=== PATIENT | female | born 1945 | race Caucasian/White ===

== ENCOUNTER → 2019-06-30 | Outpatient (CLI) | payer MEDICARE | END | disposition home or self-care (01) | LOC: SHCH 08:35 | PROVIDERS: ATTEND Internal Medicine Cardiovascular Disease | DX: I08.2 Rheumatic disorders of both aortic and tricuspid valves (principal) | CPT/HCPCS: 93306 ==

== ENCOUNTER 2019-08-29 06:08 | Day surgery (SDC) | payer MEDICARE ==
[2019-08-24 13:31] LABS: BASOPHILS % (AUTO) 0.4 % (0.0-5.0); EOSINOPHILS % (AUTO) 1.6 % (0.0-8.0); LYMPHOCYTES % (AUTO) 19.4 % (21.0-51.0); MEAN CORPUSCULAR HEMOGLOBIN 29.4 pg (27.0-33.0); MEAN CORPUSCULAR HGB CONC 32.3 g/dL (32.0-36.0); MEAN CORPUSCULAR VOLUME 91.1 fL (79-99); MONOCYTES % (AUTO) 8.7 % (3.0-13.0); NEUTROPHILS % (AUTO) 69.8 % (40.0-77.0); PLATELET COUNT (AUTO) 223 K/uL (130-400); RED BLOOD CELL COUNT(AUTO) 3.84 MIL/uL (4.00-5.50); RED CELL DISTRIBUTION WIDTH 13.1 % (11.0-15.5); WHITE BLOOD COUNT (AUTO) 6.9 K/uL (4.8-10.8)
[2019-08-24 13:38] LABS: POTASSIUM 4.1 mmol/L (3.5-5.1)
[2019-08-24 13:41] LABS: INR 1.17 (0.85-1.15); PARTIAL THROMBOPLASTIN TIME 34.9 SEC (26.3-35.5); PROTHROMBIN TIME 12.2 SEC (9.6-11.6)
[2019-08-24 13:46] VITALS: BP 125/85
--- NOTE | 2019-08-28 14:46 | NUR ---
RE: ABNORMAL LABS CALLED TYREE JERNIGAN AND REPORTED ABNORMAL LABS (PT 12.2, INR 1.17 AND H/H 11.3/35.0). NO NEW ORDERS RECEIVED, OK TO PROCEED WITH CARDIOVERSION.
[~2019-08-29] VITALS: Ht 162.6 cm; Wt 75.3 kg
[2019-08-29] VITALS (8 sets, daily range): BP systolic 119–151; BP diastolic 50–111
[~2019-08-29 06:08] MED LIST: ASPI-555 PO; BUSP10TA3 PO; CARV3.12 PO; DICY20TA11 PO; DONE10TA43 PO; DRON400T2 PO; FAMO-135 PO; MULT-959 PO; OMEG-148 PO; OMEP20TA2 PO; PRAV40TA3 PO; PREM125 PO; RIVA20TA PO; [UNRECOGNIZED DRUG - OTHER] PO
[2019-08-29] MEDS ORDERED: PSYL3.4P5 PO (07:36)
[2019-08-29] MEDS ORDERED: LORA10TA60 PO (07:36)
[2019-08-29] MEDS ORDERED: ACET-2247 PO (07:36)
[2019-08-29] MEDS ORDERED: POLY17PO4 PO (07:36)
[2019-08-29] MEDS ORDERED: PROPOFOL 10 MG/ML 20ML VIAL IV ONE (09:29)
[2019-08-29] MEDS ORDERED: SUCCINYLCHOLINE CHLORIDE 20 MG/ML 10 ML VIAL ONE (09:29)
== END 2019-08-29 10:40 | disposition home or self-care (01) ==
LOC: DAH 06:08
PROVIDERS: ATTEND Internal Medicine Cardiovascular Disease
DX: I48.19 Other persistent atrial fibrillation (principal); H91.90 Unspecified hearing loss, unspecified ear; G30.9 Alzheimer's disease, unspecified; E78.5 Hyperlipidemia, unspecified; K21.9 Gastro-esophageal reflux disease without esophagitis; Z90.710 Acquired absence of both cervix and uterus; Z79.01 Long term (current) use of anticoagulants; Z79.82 Long term (current) use of aspirin; Z79.899 Other long term (current) drug therapy
CPT/HCPCS: 36415; 80048; 85025; 85610; 85730; 92960; 93005 ×2; A4215; A4216; A4221; A4222; A4223 ×3; A4606; A4663; J0330; J2704; 99156

== ENCOUNTER 2021-06-16 06:53 | Day surgery (SDC) | payer OTHER ==
[2021-06-10 13:10] LABS: BASOPHILS % (AUTO) 0.6 % (0.0-5.0); EOSINOPHILS % (AUTO) 0.8 % (0.0-8.0); HEMATOCRIT 36.3 % (36-48); LYMPHOCYTES % (AUTO) 13.1 % (21.0-51.0); MEAN CORPUSCULAR HGB CONC 31.4 g/dL (32.0-36.0); MEAN CORPUSCULAR VOLUME 92.4 fL (79-99); MONOCYTES % (AUTO) 8.3 % (3.0-13.0); NEUTROPHILS % (AUTO) 76.7 % (40.0-77.0); PLATELET COUNT (AUTO) 222 K/uL (130-400); RED BLOOD CELL COUNT(AUTO) 3.93 MIL/uL (4.00-5.50); RED CELL DISTRIBUTION WIDTH 13.5 % (11.0-15.5); WHITE BLOOD COUNT (AUTO) 6.3 K/uL (4.8-10.8)
[2021-06-10 13:21] LABS: CREATININE 1.2 mg/dL (0.5-1.5); POTASSIUM 4.4 mmol/L (3.5-5.1)
[2021-06-10 13:24] LABS: INR 1.28 (0.85-1.15); PROTHROMBIN TIME 13.6 SEC (9.6-11.6)
[2021-06-10 13:25] LABS: PARTIAL THROMBOPLASTIN TIME 37.7 SEC (26.3-35.5)
[2021-06-11 08:45] VITALS: BP 120/65
[2021-06-16] VITALS (16 sets, daily range): BP systolic 110–143; BP diastolic 42–68
[~2021-06-16] VITALS: Ht 160 cm; Wt 77.7 kg
[~2021-06-16 06:53] MED LIST changes: +0.9% NACL 500ML IV.SOLN 500 ML IV SCH; -ASPI-555 PO; +CHOL200074 PO; +CITA-107 PO; -DICY20TA11 PO; +DICY20TA3 PO; -DRON400T2 PO; +DRON400T7 PO; -FAMO-135 PO; +FAMO-290 PO; +LORA10TA60 PO; +MEMA5TAB42 PO; +POLY17PO4 PO; +PSYL3.4P5 PO; -[UNRECOGNIZED DRUG - OTHER] PO
[2021-06-16] MEDS ORDERED: 0.9%NACL 1000ML 1,000 ML IV ONE (09:13)
[2021-06-16] MEDS ORDERED: PROPOFOL 10 MG/ML 20ML VIAL IV ONE (09:21)
== END 2021-06-16 10:45 | disposition home or self-care (01) ==
LOC: CLH 06:53 → DAH 06:53 → CLH 10:45
PROVIDERS: ATTEND Internal Medicine Cardiovascular Disease
DX: I48.0 Paroxysmal atrial fibrillation (principal); Z20.822 Contact with and (suspected) exposure to COVID-19; I44.0 Atrioventricular block, first degree; I49.1 Atrial premature depolarization; I10 Essential (primary) hypertension; K21.9 Gastro-esophageal reflux disease without esophagitis; E66.01 Morbid (severe) obesity due to excess calories; E78.5 Hyperlipidemia, unspecified; G30.9 Alzheimer's disease, unspecified; F02.80 Dementia in other diseases classified elsewhere, unspecified severity, without behavioral disturbance, psychotic disturbance, mood disturbance, and anxiety; Z88.6 Allergy status to analgesic agent; Z80.42 Family history of malignant neoplasm of prostate; Z79.899 Other long term (current) drug therapy; Z79.01 Long term (current) use of anticoagulants; Z68.30 Body mass index [BMI] 30.0-30.9, adult
CPT/HCPCS: 36415; 80048; 85025; 85610; 85730; 87635; 92960; 93005 ×2; A4215; A4216; A4221; A4222; A4223 ×3; A4606; A4663; A7002; C9803; J2704; J7030; J7040; 99156

== ENCOUNTER 2021-07-18 20:10 | Observation (INO) | payer OTHER ==
[~2021-07-18] VITALS: Ht 160 cm; Wt 73.5 kg
[~2021-07-18 20:10] MED LIST changes: -0.9% NACL 500ML IV.SOLN 500 ML IV SCH
[2021-07-18 21:17] LABS: BASOPHILS % (AUTO) 0.1 % (0.0-5.0); EOSINOPHILS % (AUTO) 1.9 % (0.0-8.0); HEMATOCRIT 35.9 % (36-48); LYMPHOCYTES % (AUTO) 7.2 % (21.0-51.0); MEAN CORPUSCULAR HEMOGLOBIN 29.1 pg (27.0-33.0); MEAN CORPUSCULAR HGB CONC 32.6 g/dL (32.0-36.0); MEAN CORPUSCULAR VOLUME 89.3 fL (79-99); MONOCYTES % (AUTO) 5.4 % (3.0-13.0); PLATELET COUNT (AUTO) 231 K/uL (130-400); RED BLOOD CELL COUNT(AUTO) 4.02 MIL/uL (4.00-5.50); RED CELL DISTRIBUTION WIDTH 13.2 % (11.0-15.5); WHITE BLOOD COUNT (AUTO) 6.7 K/uL (4.8-10.8)
[2021-07-18 21:43] LABS: CARBON DIOXIDE 27 mmol/L (21-32); CHLORIDE 97 mmol/L (101-111); GLOMERULAR FILTR. RATE CALC 57 mL/min (>60); GLUCOSE,RANDOM 120 mg/dL (70-105); POTASSIUM 3.5 mmol/L (3.5-5.1); SODIUM SERUM 133 mmol/L (136-145); UREA NITROGEN, BLOOD 10 mg/dL (7-18)
[2021-07-18 21:52] LABS: ALANINE AMINOTRANSFERASE 30 U/L (12-78); ALBUMIN 3.1 g/dL (3.5-5.0); ASPARTATE AMINOTRANSFERASE 32 U/L (10-37); BILIRUBIN,TOTAL 0.5 mg/dL (0.2-1.0); TOTAL PROTEIN, SERUM 7.1 g/dL (6.0-8.3)
[2021-07-18 21:56] LABS: INR 1.05 (0.85-1.15); LIPASE < 50 U/L (114-286); PROTHROMBIN TIME 11.4 SEC (9.6-11.6)
[2021-07-18 21:57] LABS: PARTIAL THROMBOPLASTIN TIME 34.9 SEC (26.3-35.5)
[2021-07-18 22:36] LABS: APPEARANCE,URINE CLEAR (CLEAR); BILIRUBIN,URINE SMALL (NEGATIVE); COLOR,URINE YELLOW (YELLOW); GLUCOSE, URINE (UA) NEGATIVE (NEGATIVE); KETONES,URINE 15 mg/dL (NEGATIVE); LEUKOCYTE ESTERASE ,URINE SMALL (NEGATIVE); NITRATE,URINE NEGATIVE (NEGATIVE); OCCULT BLOOD,URINE NEGATIVE (NEGATIVE); PROTEIN,URINE 30 mg/dL (NEGATIVE); UROBILINOGEN,URINE 0.2 mg/dL (0.2-1.0)
[2021-07-18 22:44] LABS: RBC,URINE 0-1 /HPF (0-1)
[2021-07-18 22:45] LABS: BACTERIA,URINE Few /HPF (None Seen); SQUAMOUS EPITHELIAL CELL,UR Rare /HPF (0-2)
[2021-07-18 22:52] LABS: WBC,URINE None Seen /HPF (0-1)
[2021-07-19] MEDS ORDERED: GUAIFENESIN-DM 200/20 MG 10 ML PO PRN (01:30)
[2021-07-19] MEDS ORDERED: ACETAMINOPHEN 325 MG TAB PO PRN ×2 (01:30)
[2021-07-19] MEDS ORDERED: MAG/ALUM/SIMETH 30 ML UDCUP PO PRN (01:30)
[2021-07-19] MEDS ORDERED: ERGOCALCIFEROL (VITAMIN D2) 50,000 UNIT CAPSULE PO ONE (01:30)
[2021-07-19] MEDS ORDERED: LACTULOSE 20 GM/30 ML UDCUP PO PRN (01:30)
[2021-07-19 01:51] LABS: ABG HCO3 22.6 mmol/L (21.0-28.0); ABG OXYGEN SATURATION 96.3 % (95.0-99.0); ABG PCO2 31 mmHg (32-45)
[2021-07-19] MEDS: AZITHROMYCIN 500MG+NS 250ML 250 ML IV SCH (02:06)
[2021-07-19] MEDS: CEFTRIAXONE 1G VIAL IV SCH (02:06)
[2021-07-19] MEDS: ONDANSETRON 4MG INJ IV PRN (04:06)
[2021-07-19] MEDS: INSULIN HUMULIN R 100 UNIT/ML 3ML SQ SCH ×4 (07:30→20:47)
[2021-07-19] MEDS ORDERED: ENOXAPARIN SODIUM 40 MG/0.4 ML SYRINGE SQ SCH ×2 (09:00)
[2021-07-19] MEDS ORDERED: CARVEDILOL 6.25 MG TABLET PO SCH (09:00)
[2021-07-19] MEDS: ASPIRIN 81 MG EC TAB PO SCH (09:01)
[2021-07-19] MEDS: POLYETHYLENE GLYCOL 3350 17 GM POWD.PACK PO SCH (09:01)
[2021-07-19] MEDS: ZINC SULFATE 220 CAPSULE PO SCH (09:01)
[2021-07-19] MEDS: ASCORBIC ACID 500 MG TAB PO SCH (09:01)
[2021-07-19] MEDS: FAMOTIDINE 20MG TAB PO SCH ×2 (09:01→20:46)
[2021-07-19] MEDS ORDERED: LIDOCAINE HCL-MPF 1% 2ML VIAL IV PRN (13:00)
[2021-07-19] MEDS ORDERED: MAGNESIUM 2GM PREMIX 50ML 50 ML IV PRN (13:00)
[2021-07-19] MEDS ORDERED: POTASSIUM CHLORIDE 20MEQ/100ML 100 ML IV PRN (13:00)
[2021-07-19] MEDS ORDERED: KCL 20 MEQ ERTAB PO PRN (13:00)
[2021-07-19] MEDS ORDERED: POTASSIUM CHLORIDE 10% ELIXIR 20 MEQ/15 ML UDCUP PO PRN (13:00)
[2021-07-19 13:56] VITALS: BP 119/60
[2021-07-19 16:00] VITALS: BP 106/55
[2021-07-19] MEDS ORDERED: ENOXAPARIN SODIUM 80 MG/0.8 ML SQ SCH (16:00)
[2021-07-19 19:14] VITALS: BP 140/71
[2021-07-19] MEDS: MEMANTINE HCL 5 MG TABLET PO SCH (20:45)
[2021-07-19] MEDS: BUSPIRONE HCL 5 MG TABLET PO SCH (20:46)
[2021-07-19] MEDS: CARVEDILOL 3.125 MG TABLET PO SCH (20:46)
[2021-07-19] MEDS ORDERED: RIVAROXABAN 20 MG TABLET PO SCH (21:00)
[2021-07-19] MEDS ORDERED: POLYETHYLENE GLYCOL 3350 17 GM POWD.PACK PO SCH (21:00)
[2021-07-19] MEDS ORDERED: SIMVASTATIN 20 MG TABLET PO SCH (21:00)
[2021-07-19 23:23] VITALS: BP 117/68
[2021-07-20] MEDS: CEFTRIAXONE 1G VIAL IV SCH (02:06)
[2021-07-20] MEDS: AZITHROMYCIN 500MG+NS 250ML 250 ML IV SCH (02:06)
[2021-07-20 03:37] VITALS: BP 141/60
[2021-07-20 04:10] LABS: BASOPHILS % (AUTO) 0.2 % (0.0-5.0); EOSINOPHILS % (AUTO) 0.5 % (0.0-8.0); HEMATOCRIT 31.8 % (36-48); LYMPHOCYTES % (AUTO) 20.4 % (21.0-51.0); MEAN CORPUSCULAR HEMOGLOBIN 28.4 pg (27.0-33.0); MEAN CORPUSCULAR HGB CONC 32.4 g/dL (32.0-36.0); MEAN CORPUSCULAR VOLUME 87.6 fL (79-99); NEUTROPHILS % (AUTO) 69.4 % (40.0-77.0); PLATELET COUNT (AUTO) 200 K/uL (130-400); RED BLOOD CELL COUNT(AUTO) 3.63 MIL/uL (4.00-5.50); RED CELL DISTRIBUTION WIDTH 13.2 % (11.0-15.5); WHITE BLOOD COUNT (AUTO) 4.3 K/uL (4.8-10.8)
[2021-07-20 04:28] LABS: ALBUMIN 2.6 g/dL (3.5-5.0); BILIRUBIN,TOTAL 0.4 mg/dL (0.2-1.0); CREATININE 0.9 mg/dL (0.5-1.5); POTASSIUM 3.3 mmol/L (3.5-5.1); TOTAL PROTEIN, SERUM 6.5 g/dL (6.0-8.3)
[2021-07-20] MEDS: INSULIN HUMULIN R 100 UNIT/ML 3ML SQ SCH ×2 (07:30→11:30)
[2021-07-20 08:00] VITALS: BP 124/64
[2021-07-20] MEDS: ONDANSETRON 4MG INJ IV PRN (08:04)
[2021-07-20] MEDS ORDERED: ESTROGENS,CONJUGATED 0.625 MG TAB PO SCH (09:00)
[2021-07-20] MEDS ORDERED: MULTIVITAMIN TABLET PO SCH (09:00)
[2021-07-20] MEDS ORDERED: LORATADINE 10 MG TABLET PO SCH (09:00)
[2021-07-20] MEDS ORDERED: ***HM*** (Cholecalciferol (Vitamin D3) (Vitamin D3) 50 MCG) PO SCH (09:00)
[2021-07-20] MEDS: POLYETHYLENE GLYCOL 3350 17 GM POWD.PACK PO SCH (09:00)
[2021-07-20] MEDS ORDERED: DONEPEZIL HCL 5 MG TAB PO SCH (09:00)
[2021-07-20] MEDS ORDERED: FISH OIL 1000 MG/CAP PO SCH (09:00)
[2021-07-20] MEDS ORDERED: CITALOPRAM 20 MG TABLET PO SCH (09:00)
[2021-07-20] MEDS ORDERED: PANTOPRAZOLE 40 MG TAB DR PO SCH (09:30)
[2021-07-20] MEDS: BUSPIRONE HCL 5 MG TABLET PO SCH (10:31)
[2021-07-20] MEDS: ZINC SULFATE 220 CAPSULE PO SCH (10:31)
[2021-07-20] MEDS: ASCORBIC ACID 500 MG TAB PO SCH (10:31)
[2021-07-20] MEDS: ASPIRIN 81 MG EC TAB PO SCH (10:32)
[2021-07-20] MEDS: MEMANTINE HCL 5 MG TABLET PO SCH (10:32)
[2021-07-20] MEDS: CARVEDILOL 3.125 MG TABLET PO SCH (10:32)
[2021-07-20 14:39] VITALS: BP 93/50
[2021-07-20] MEDS ORDERED: RIVAROXABAN 20 MG TABLET PO SCH (16:00)
[2021-07-20] MEDS ORDERED: CEFD300C3 PO (16:41)
== END 2021-07-20 16:02 | disposition home or self-care (01) ==
LOC: EDH 20:10 → INTOOBSV 07-19 01:20 → EDHIP 07-19 01:20 → 2AH 07-19 13:23
PROVIDERS: ADMIT Hospitalist; ATTEND Hospitalist
DX: U07.1 COVID-19 (principal); J12.82 Pneumonia due to coronavirus disease 2019; K57.90 Diverticulosis of intestine, part unspecified, without perforation or abscess without bleeding; K59.00 Constipation, unspecified; G30.9 Alzheimer's disease, unspecified; F02.80 Dementia in other diseases classified elsewhere, unspecified severity, without behavioral disturbance, psychotic disturbance, mood disturbance, and anxiety; I48.20 Chronic atrial fibrillation, unspecified; E87.1 Hypo-osmolality and hyponatremia; E11.9 Type 2 diabetes mellitus without complications; I10 Essential (primary) hypertension; E78.5 Hyperlipidemia, unspecified; K21.9 Gastro-esophageal reflux disease without esophagitis; H91.90 Unspecified hearing loss, unspecified ear; E78.00 Pure hypercholesterolemia, unspecified; Z79.899 Other long term (current) drug therapy; Z90.710 Acquired absence of both cervix and uterus; Z87.891 Personal history of nicotine dependence; Z97.4 Presence of external hearing-aid
CPT/HCPCS: 36415 ×3; 36600; 71045; 74176; 80053 ×2; 81001; 82270; 82728; 82803; 82948 ×5; 83615; 83690; 83735 ×2; 83880; 84145; 84484; 85025 ×2; 85378 ×2; 85384; 85610; 85730; 86140; 87635; 87804 ×2; 93005; 96365; 96366; 96372; 96375; 96376; 99285; C9803; G0378 ×6; J0456 ×2; J0696 ×2; J1650 ×2; J2405 ×2

== ENCOUNTER → 2021-08-06 | Outpatient (CLI) | payer OTHER ==
[~2021-08-06] MED LIST changes: +CEFD300C3 PO; -DRON400T7 PO
== END | disposition home or self-care (01) ==
LOC: SHCH 09:43
PROVIDERS: ATTEND Internal Medicine Cardiovascular Disease
DX: I08.0 Rheumatic disorders of both mitral and aortic valves (principal); E78.5 Hyperlipidemia, unspecified
CPT/HCPCS: 93306

== ENCOUNTER → 2021-09-30 | Outpatient (CLI) | payer OTHER ==
[~2021-09-30] MED LIST changes: +ALBUTEROL 0.083% 2.5 MG/3 ML INH IH ONE; +AMIO200T68 PO; -CARV3.12 PO; +CARV6.25 PO; -CEFD300C3 PO; +FLUO20CA30 PO; -LORA10TA60 PO; +LORA10TA7 PO; +MEMA10TA55 PO; -MEMA5TAB42 PO; +METH-425 PO; -OMEP20TA2 PO
== END | disposition home or self-care (01) ==
LOC: RESP 13:58
PROVIDERS: ATTEND Internal Medicine Cardiovascular Disease
DX: R06.01 Orthopnea (principal); R06.02 Shortness of breath
CPT/HCPCS: 94060; 94727; 94729

== ENCOUNTER 2021-10-09 17:10 | Observation (INO) | payer OTHER ==
[~2021-10-09] VITALS: Ht 167.6 cm; Wt 74.2 kg
[~2021-10-09 17:10] MED LIST changes: -ALBUTEROL 0.083% 2.5 MG/3 ML INH IH ONE
[2021-10-09 17:36] LABS: BASOPHILS % (AUTO) 0.5 % (0.0-5.0); EOSINOPHILS % (AUTO) 0.8 % (0.0-8.0); HEMATOCRIT 33.6 % (36-48); MEAN CORPUSCULAR HEMOGLOBIN 29.9 pg (27.0-33.0); MEAN CORPUSCULAR VOLUME 90.6 fL (79-99); MONOCYTES % (AUTO) 8.9 % (3.0-13.0); NEUTROPHILS % (AUTO) 72.5 % (40.0-77.0); PLATELET COUNT (AUTO) 194 K/uL (130-400); RED BLOOD CELL COUNT(AUTO) 3.71 MIL/uL (4.00-5.50); WHITE BLOOD COUNT (AUTO) 7.8 K/uL (4.8-10.8)
[2021-10-09 17:47] LABS: CREATININE 1.2 mg/dL (0.5-1.5); POTASSIUM 4.2 mmol/L (3.5-5.1)
[2021-10-09 17:52] LABS: ALBUMIN 3.4 g/dL (3.5-5.0); BILIRUBIN,TOTAL 0.2 mg/dL (0.2-1.0); TOTAL PROTEIN, SERUM 7.2 g/dL (6.0-8.3)
[2021-10-09 18:34] LABS: APPEARANCE,URINE Clear (CLEAR); BILIRUBIN,URINE Negative (NEGATIVE); COLOR,URINE Yellow (YELLOW); GLUCOSE, URINE (UA) Negative (NEGATIVE); KETONES,URINE Negative (NEGATIVE); LEUKOCYTE ESTERASE ,URINE Negative (NEGATIVE); NITRATE,URINE Negative (NEGATIVE); OCCULT BLOOD,URINE Negative (NEGATIVE); PROTEIN,URINE Negative (NEGATIVE); UROBILINOGEN,URINE 0.2 mg/dL (0.2-1.0)
[2021-10-09] MEDS: FAMOTIDINE 20MG VIAL IV SCH (22:12)
[2021-10-10 03:46] LABS: HEMOGLOBIN A1C 6.2 % (4.0-6.0)
[2021-10-10 03:54] LABS: ALBUMIN 3.1 g/dL (3.5-5.0); BILIRUBIN,TOTAL 0.2 mg/dL (0.2-1.0); CREATININE 1.1 mg/dL (0.5-1.5); POTASSIUM 3.6 mmol/L (3.5-5.1); TOTAL PROTEIN, SERUM 6.5 g/dL (6.0-8.3)
[2021-10-10] MEDS: INSULIN HUMULIN R 100 UNIT/ML 3ML SQ SCH ×2 (06:00→11:58)
[2021-10-10] MEDS ORDERED: AMIO200T68 PO (08:52)
[2021-10-10] MEDS ORDERED: OMEP20TA20 PO (08:52)
[2021-10-10] MEDS ORDERED: PREM125 PO (08:52)
[2021-10-10] MEDS ORDERED: MEMA5TAB42 PO (08:52)
[2021-10-10] MEDS ORDERED: FUROSEMIDE 20MG VIAL IV SCH (09:00)
[2021-10-10] MEDS ORDERED: CARV3.12 PO (09:18)
[2021-10-10] MEDS ORDERED: 0.9% NACL 500ML IV.SOLN 500 ML IV SCH (09:30)
[2021-10-10] MEDS: MEMANTINE HCL 5 MG TABLET PO SCH ×2 (09:45→21:26)
[2021-10-10] MEDS: CITALOPRAM 20 MG TABLET PO SCH (11:20)
[2021-10-10] MEDS: AMIODARONE 200 MG TABLET PO SCH (11:20)
[2021-10-10] MEDS: CARVEDILOL 3.125 MG TABLET PO SCH ×2 (11:21→21:00)
[2021-10-10 15:25] VITALS: BP 143/58
[2021-10-10 20:00] VITALS: BP 141/55
[2021-10-10] MEDS ORDERED: RIVAROXABAN 20 MG TABLET PO SCH (21:00)
[2021-10-10] MEDS: POLYETHYLENE GLYCOL 3350 17 GM POWD.PACK PO SCH (21:26)
[2021-10-10] MEDS: RIVAROXABAN 20 MG TABLET PO SCH (21:26)
[2021-10-10] MEDS: DICYCLOMINE HCL 20 MG TAB PO SCH (21:26)
[2021-10-10] MEDS: BUSPIRONE HCL 5 MG TABLET PO SCH (21:27)
[2021-10-10] MEDS: FAMOTIDINE 20MG VIAL IV SCH (21:34)
[2021-10-11] VITALS: BP_SYST 116; BP_SYST 136; BP_SYST 145; BP_DIAS 53; BP_DIAS 56
[2021-10-11 04:00] VITALS: BP 164/71
[2021-10-11 05:57] LABS: CHOLESTEROL 209 mg/dL (<200); HDL CHOLESTEROL 83 mg/dL (35-85); LDL DIRECT 102 mg/dL (0-99); TRIGLYCERIDES 116 mg/dL (30-200)
[2021-10-11] MEDS: INSULIN HUMULIN R 100 UNIT/ML 3ML SQ SCH ×4 (06:00→18:00)
[2021-10-11 06:25] LABS: BASOPHILS % (AUTO) 0.8 % (0.0-5.0); EOSINOPHILS % (AUTO) 1.2 % (0.0-8.0); HEMATOCRIT 33.3 % (36-48); LYMPHOCYTES % (AUTO) 23.5 % (21.0-51.0); MEAN CORPUSCULAR HEMOGLOBIN 28.7 pg (27.0-33.0); MEAN CORPUSCULAR HGB CONC 32.4 g/dL (32.0-36.0); MEAN CORPUSCULAR VOLUME 88.6 fL (79-99); MONOCYTES % (AUTO) 12.3 % (3.0-13.0); NEUTROPHILS % (AUTO) 61.8 % (40.0-77.0); PLATELET COUNT (AUTO) 181 K/uL (130-400); RED BLOOD CELL COUNT(AUTO) 3.76 MIL/uL (4.00-5.50); RED CELL DISTRIBUTION WIDTH 14.1 % (11.0-15.5); WHITE BLOOD COUNT (AUTO) 5.2 K/uL (4.8-10.8)
[2021-10-11 06:29] LABS: POTASSIUM 3.6 mmol/L (3.5-5.1)
[2021-10-11 08:00] VITALS: BP 166/45
[2021-10-11] MEDS: CHOLECALCIFEROL 2000 UNIT PO SCH (09:00)
[2021-10-11] MEDS ORDERED: LORATADINE 10 MG TABLET PO SCH (09:00)
[2021-10-11] MEDS: ATORVASTATIN 40 MG TABLET PO SCH ×2 (09:00→21:06)
[2021-10-11] MEDS: FISH OIL 1000 MG/CAP PO SCH (09:43)
[2021-10-11] MEDS: DONEPEZIL HCL 5 MG TAB PO SCH (09:43)
[2021-10-11] MEDS: DICYCLOMINE HCL 20 MG TAB PO SCH ×3 (09:43→21:06)
[2021-10-11] MEDS: PSYLLIUM SEED 1 EACH PACKET PO SCH ×3 (09:43→18:00)
[2021-10-11] MEDS: AMIODARONE 200 MG TABLET PO SCH (09:43)
[2021-10-11] MEDS: MEMANTINE HCL 5 MG TABLET PO SCH ×2 (09:44→21:06)
[2021-10-11] MEDS: CITALOPRAM 20 MG TABLET PO SCH (09:44)
[2021-10-11] MEDS: BUSPIRONE HCL 5 MG TABLET PO SCH ×2 (09:44→21:07)
[2021-10-11] MEDS: CARVEDILOL 3.125 MG TABLET PO SCH (09:44)
[2021-10-11 12:00] VITALS: BP_SYST 101; BP_SYST 142; BP_DIAS 40; BP_DIAS 42; BP_DIAS 45
[2021-10-11 16:00] VITALS: BP 105/34
[2021-10-11 20:00] VITALS: BP 138/50
[2021-10-11] MEDS: FAMOTIDINE 20MG VIAL IV SCH (21:05)
[2021-10-11] MEDS: RIVAROXABAN 20 MG TABLET PO SCH (21:06)
[2021-10-11] MEDS: POLYETHYLENE GLYCOL 3350 17 GM POWD.PACK PO SCH (21:06)
[2021-10-11] MEDS: PINDOLOL 5 MG TAB PO SCH (21:07)
[2021-10-12] VITALS (7 sets, daily range): BP systolic 97–151; BP diastolic 35–58
[2021-10-12] MEDS: INSULIN HUMULIN R 100 UNIT/ML 3ML SQ SCH ×4 (05:11→18:00)
[2021-10-12] MEDS: PSYLLIUM SEED 1 EACH PACKET PO SCH ×3 (08:30→18:00)
[2021-10-12] MEDS: CHOLECALCIFEROL 2000 UNIT PO SCH (09:00)
[2021-10-12] MEDS: DONEPEZIL HCL 5 MG TAB PO SCH (09:10)
[2021-10-12] MEDS: MEMANTINE HCL 5 MG TABLET PO SCH (09:10)
[2021-10-12] MEDS: DICYCLOMINE HCL 20 MG TAB PO SCH ×2 (09:11→14:32)
[2021-10-12] MEDS: AMIODARONE 200 MG TABLET PO SCH (09:11)
[2021-10-12] MEDS: CITALOPRAM 20 MG TABLET PO SCH (09:11)
[2021-10-12] MEDS: FISH OIL 1000 MG/CAP PO SCH (09:11)
[2021-10-12] MEDS: BUSPIRONE HCL 5 MG TABLET PO SCH (09:11)
[2021-10-12] MEDS: PINDOLOL 5 MG TAB PO SCH (09:17)
[2021-10-12] MEDS ORDERED: PIND5 PO (12:07)
== END 2021-10-12 18:30 | disposition home or self-care (01) ==
LOC: EDH 17:10 → UNDOADMOB 19:16 → INTOOBSV 19:16 → EDHIP 19:16 → OBSVTOIN 19:16 → EDHIP 20:08 → INTOOBSV 20:08 → OBSVTOIN 20:08 → 3CH 10-10 15:22
PROVIDERS: ADMIT Internal Medicine; ATTEND Internal Medicine
DX: R55 Syncope and collapse (principal); E87.70 Fluid overload, unspecified; E87.1 Hypo-osmolality and hyponatremia; I10 Essential (primary) hypertension; R00.1 Bradycardia, unspecified; E11.9 Type 2 diabetes mellitus without complications; I44.0 Atrioventricular block, first degree; I48.0 Paroxysmal atrial fibrillation; I63.29 Cerebral infarction due to unspecified occlusion or stenosis of other precerebral arteries; K21.9 Gastro-esophageal reflux disease without esophagitis; E78.00 Pure hypercholesterolemia, unspecified; E78.5 Hyperlipidemia, unspecified; H91.93 Unspecified hearing loss, bilateral; F02.80 Dementia in other diseases classified elsewhere, unspecified severity, without behavioral disturbance, psychotic disturbance, mood disturbance, and anxiety; G30.9 Alzheimer's disease, unspecified; M85.88 Other specified disorders of bone density and structure, other site; Z79.01 Long term (current) use of anticoagulants; Z86.16 Personal history of COVID-19; Z86.73 Personal history of transient ischemic attack (TIA), and cerebral infarction without residual deficits; Z87.891 Personal history of nicotine dependence; Z90.710 Acquired absence of both cervix and uterus; Z97.4 Presence of external hearing-aid; Z79.4 Long term (current) use of insulin; Z79.899 Other long term (current) drug therapy; Z98.890 Other specified postprocedural states; W18.30XA Fall on same level, unspecified, initial encounter; Y92.89 Other specified places as the place of occurrence of the external cause; Y93.89 Activity, other specified; Y99.8 Other external cause status
CPT/HCPCS: 36415 ×3; 70450; 70551; 71045; 72131; 74176; 80048; 80053 ×2; 80061; 81003; 82948 ×6; 83036; 83735; 83880 ×2; 84145; 84484 ×4; 85025 ×2; 92610; 93005; 93306; 93356; 93880; 96374; 96375; 96376 ×2; 97039 ×2; 97116; 97161; 99285; G0378 ×25; J1940; J3490 ×3